=== PATIENT | male | born 1990 | race Caucasian/White ===

== ENCOUNTER 2017-08-20 23:22 | Emergency (ER) | payer OTHER ==
[~2017-08-20] VITALS: Ht 170.2 cm; Wt 49.0 kg
[2017-08-20] MEDS: NALOXONE HCL 0.4 MG/ML AMPUL IM ONE ×2 (22:27→23:27)
[~2017-08-20 23:22] MED LIST: ALPR0.25 PO
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
--- NOTE | 2017-08-20 23:28 | NUR ---
IM NARCAN 1MG TO RIGHT THIGHT PER DR. LISA.
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
[2017-08-20 23:46] VITALS: BP 130/70
== END 2017-08-20 23:46 | disposition left against medical advice (07) ==
LOC: ER 23:25
DX: T40.1X1A Poisoning by heroin, accidental (unintentional), initial encounter (principal); F17.200 Nicotine dependence, unspecified, uncomplicated; Y92.89 Other specified places as the place of occurrence of the external cause